=== PATIENT | male | born 1945 ===

== ENCOUNTER 2017-01-19 01:28 | Inpatient (IN) | payer OTHER ==
[~2017-01-19] VITALS: Ht 190.5 cm; Wt 113.4 kg
[~2017-01-19 01:28] MED LIST: ASPIRIN EC325 M2 PO; COREG25 M1 PO; LOSARTAN POTAS100 M1 PO; PRAVASTATIN SOD80 M2 PO; VENLAFAXINE HCL75 MG PO
--- NOTE | 2017-01-19 10:15 | Admission Core Measures ---
Admission Meds I reviewed the following Meds: Current Medications Sig/Donal Start time Last Medication Dose Stop Time Status Admin Acetaminophen 975 MG ONCE 01/19 NR (Tylenol) 01/19 2359 Cefazolin Sodium 2,000 MG ONCE 01/19 NR (Kefzol-Ancef Inj) 01/19 2359 Oxycodone HCl 10 MG ONCE 01/19 NR (Roxicodone) 01/19 2359 Acute Coronary Syndrome Inclusion Criteria ACS Diagnosis No Inpatient Core Measures LDL Reminder: If No, please order W/I first 24hr of stay Congestive Heart Failure Inclusion Criteria CHF Diagnosis No Cerebrovascular accident Inclusion Criteria CVA/TIA Diagnosis No Inpatient Core Measures Bedside Swallow Eval Reminder: If BSE failed, place ST order Antithrombotic Reminder: Order Antithrombotic Medication by end of day 2 Antithrombotic Reminder: Document Reason Antithrombotic Not ordered by end of day 2 AFIB/Flutter Reminder: If Present, add to problem list AFIB/Flutter Reminder: Order Anticoag Medication for pts with AFIB/Flutter Atherosclerosis Reminder: If Present, add to problem list LDL Reminder: If No, please order W/I first 24hr of stay PT Order Reminder: If No, please order Venous thromboembolism Inpatient Core Measures VTE Risk Factors: Age > 40, Surgery No [facility] VTE prophylaxis d/t No contraindications No VTE Pharm Prophylaxis d/t No contraindications Inclusion Criteria - Per Current guidelines, there needs to be overlap - treatment for the first 5 days of Warfarin therapy. - Parenteral Anticoagulation (IV or SC) needs to be - given along with Warfarin therapy. VTE Diagnosis No VTE Type NONE VTE Confirmed by (Test) NONE Problem List As ranked by this Provider includes Assessment & Plan 1. S/P total hip arthroplasty HOME MEDS Home Med List Aspirin (Ecotrin*) 325 MG TABLET.DR 1 TAB PO DAILY A FIB (Reported) Carvedilol (Coreg) 25 MG TABLET 2 TAB PO BID A FIB (Reported) Losartan Potassium 100 MG TABLET 1 TAB PO DAILY HTN (Reported) Pravastatin Sodium 80 MG TABLET 1 TAB PO DAILY CHOLESTEROL (Reported) Venlafaxine HCl 75 MG TABLET 1 TAB PO DAILY ANXIETY (Reported)
[2017-01-19] MEDS ORDERED: COLACE100 M1 PO (10:34)
[2017-01-19] MEDS ORDERED: ASPIRIN325 M2 PO (10:34)
[2017-01-19] MEDS ORDERED: MIRALAX17 G1 PO (10:34)
[2017-01-19] MEDS ORDERED: MS CONTIN15 M2 PO (10:34)
[2017-01-19] MEDS ORDERED: DILAUDID2 M1 PO (10:34)
--- NOTE | 2017-01-19 10:37 | Patient Discharge Instructions ---
Discharge Instructions General Discharge Information You were seen/treated for: Left hip degenerative joint disease You had these procedures: Left total hip arthroplasty Watch for these problems: Significantly increased pain, difficulty ambulating, or temperature over 101 Increased redness or drainage from incision No bath, but you may shower: Yes Other wound care: Daily dry dressing change Special Instructions: See preprinted information booklet Diet Continue normal diet: Yes Activity Activity Self Limited: Yes Other activity limits: Ambulate with walker as instructed by physical therapy No driving or operating heavy machinery until off all pain medications and okay with YOUR surgeon Acute Coronary Syndrome Inclusion Criteria At DC or during hospital stay patient has or had the following: ACS DIAGNOSIS No Discharge Core Measures Meds if any: Prescribed or Continued at Discharge Meds if any: NOT Prescribed or Continued at Discharge Congestive Heart Failure Inclusion Criteria At DC or during hospital stay patient has or had the following: CHF DIAGNOSIS No Discharge Core Measures Meds if any: Prescribed or Continued at Discharge Meds if any: NOT Prescribed or Continued at Discharge Cerebrovascular accident Inclusion Criteria At DC or during hospital stay patient has or had the following: CVA/TIA Diagnosis No Discharge Core Measures Meds if any: Prescribed or Continued at Discharge Meds if any: NOT Prescribed or Continued at Discharge Venous thromboembolism Inclusion Criteria VTE Diagnosis No VTE Type NONE VTE Confirmed by (Test) NONE Discharge Core Measures - Per Current guidelines, there needs to be overlap - treatment for the first 5 days of Warfarin therapy. - If discharged on Warfarin prior to 5 days of - overlap therapy, the patient will need to be - assessed for post discharge needs including - *Post discharge parental anticoagulation - *Warfarin and/or parental anticoagulation education - *Follow up date to check INR post discharge At least 5 days overlap therapy as Inpatient No Meds if any: Prescribed or Continued at Discharge Note: Overlap Therapy is Warfarin and Anticoagulant Meds if any: NOT Prescribed or Continued at Discharge
--- NOTE | 2017-01-19 10:40 | Surg Short-stay <48hrs Dis Sum ---
Visit Information Visit Dates Admission Date: 01/19/17 Discharge Date: 01/20/17 Surgical Short Stay DC Summary Admission Diagnosis: Left hip degenerative joint disease Final Diagnosis: Same Procedure(s): Left total hip arthroplasty Summary/Significant Findings: The patient was admitted on 01/19/2017. Later that day he was brought to the operating theater and underwent a left total hip arthroplasty. Postoperative the patient's pain is under adequate control and he ambulated well with physical therapy. The patient's labs and vital signs were stable and he was discharged with an uneventful hospital course. Condition at Discharge: Stable Discharge Disposition: home health services Discharge instructions provided to patient/family: Yes Post discharge follow-up plan: Call the office to be seen in 6 weeks or earlier if needed
--- NOTE | 2017-01-19 13:33 | RADIOLOGY REPORT ---
EXAMINATION: XR HIP, LEFT CLINICAL INFORMATION: Status post left hip prosthesis placement. COMPARISON: None TECHNIQUE: AP and crosstable lateral views of the left hip. FINDINGS: Intact left hip prosthesis is present. There are no acute fractures. IMPRESSION: Intact left hip prosthesis.
[2017-01-19 15:11] VITALS: BP 110/60
--- NOTE | 2017-01-19 15:40 | Operative Report ---
Operative/Inv Procedure Report Surgery Date: 01/19/17 Name of Procedure: Left total hip replacement Pre-Operative Diagnosis: Primary left hip DJD Post-Operative Diagnosis: Same Estimated Blood Loss: 250 Surgeon/Casting Technician: DEVON RANDOLPH,REGINALD Holder Anesthesia: general endotracheal tube Operative/Procedure Note Note: Description of Procedure: The patient was taken to the operating room and positively identified. After induction of general anesthesia and administration of appropriate pre-operative antibiotics, the patient was positioned supine on the operating room table and all bony prominences were well padded. After performing a surgical timeout, the left lower extremity was prepped and draped in the usual sterile fashion. A direct anterior approach was made to the left hip. The incision was carried sharply through superficial soft tissues to the level of the fascia. Meticulous hemostasis was maintained with Bovie electocautery. The fascia over the tensor fascia ruddy muscle was opened sharply and the interval between the TFL and the sartorius was entered bluntly taking care to stay lateral to the lateral femoral cutaneous nerve. Retractors were placed around the femoral neck and the pericapsular fat was identified. The ascending branches of the lateral femoral circumflex vessels were identified and carefully coagulated. The pericapsular fat and anterior capsule were then resected. A napkin ring osteotomy was performed and the femoral head was removed without difficulty. Attention was then turned to the acetabulum. After appropriate placement of retractors, the acetabulum was exposed. Soft tissue was cleaned from the acetabular margin and notch. Overhanging osteophytes were removed and the teardrop was exposed. The acetabulum was then sequentially reamed to accept a 62 mm Reese Tritanium hemispherical solid back shell. This was impacted into place in the appropriate position and fitted with a 36 mm Trident X3 zero degree polyethylene insert. Attention was then turned to the femur. After performing the appropriate ligament releases, the proximal femur was exposed. It was then sequentially broached to accept a size 7 Randolph accolade 2 stem. This was trialed for leg length and stability. The trial component was removed and the final component was impacted into place. The trunnion was carefully cleaned and fit with a 36 mm, -2.5 Biolox delta ceramic femoral head. The hip was reduced and put through a full range of motion and found to be stable. The articular space was then irrigated with sterile saline. The periarticular soft tissues were infilitrated with Marcaine. The fascial layer was closed with interrupted #1 vicryl suture and the skin was re-approximated with interrupted 2 -0 vicryl. The skin was closed with a running 3-0 V-Lock suture. Steri-strips and a sterile dressing were applied. The patient was awakened and taken to the recovery room in satisfactory condition.
--- NOTE | 2017-01-19 15:47 | PN- Orthopedic ---
Subjective Subjective: POC S/P LEFT STACEY SITTING UP IN CHAIR NO MJAOR COMPLAINTS HAS AMBULATED WITH PT ARTURO CP SOB, NO N+V Objective Vital Signs and I&Os Vital Signs Date Time Temp Pulse Resp B/P B/P Pulse O2 O2 Flow FiO2 Mean Ox Delivery Rate 01/19 1511 97.6 78 18 110/60 95 Nasal 2.0L Cannula Physical Exam: CV: RRR LUNGS: CLEAR ABD: +BS, SOFT EXT: DISTAL CMS INTACT BILAT DRSG DRY THIGH SOFT Assessment/Plan Assessment/Plan ORTHO STABLE PLAN CONT OOB WIH PT/STAIRS ASA BID FOR DVT PROPHYLAXIS HOME D/C PLANNING Core Measures/Miscellaneous Venous Thromboembolism VTE Risk Factors: Age > 40, Surgery VTE Contraindications: No Contraindications VTE Diagnosis: No VTE Type: NONE VTE Confirmed by (Test): NONE Beta Quentin Is Beta Quentin a Home Med? Yes Antibiotics Is Patient on Antibiotics? Yes If Yes: prophylaxis
[2017-01-19 16:57] VITALS: BP 102/70
[2017-01-19 19:20] VITALS: BP 118/68
[2017-01-19 20:49] VITALS: BP 124/76
[2017-01-20 01:01] VITALS: BP 148/76
[2017-01-20 05:16] VITALS: BP 122/70
[2017-01-20 07:53] LABS: ABSOLUTE BASOPHIL COUNT 0 /CUMM (0.0-0.2); ABSOLUTE EOSINOPHIL COUNT 0.1 /CUMM (0.0-0.7); ABSOLUTE GRANULOCYTE CT 10.5 /CUMM (1.4-6.5); ABSOLUTE LYMPH COUNT 1.3 /CUMM (1.2-3.4); BASOPHIL % 0.2 % (0.0-2.0); EOSINOPHIL % 0.4 % (0-5); GRANULOCYTE % 81.6 % (42.2-75.2); HEMATOCRIT 35.7 % (42-52); MEAN CORPUSCULAR HGB 29.6 PG (27.0-31.0); MEAN CORPUSCULAR HGB CONC 33.3 G/DL (33.0-37.0); MEAN PLATELET VOLUME 9.2 FL (7.4-10.4); PLATELET COUNT 153 /CUMM (130-400); RED BLOOD CELL CT 4.01 /CUMM (4.70-6.10); WHITE BLOOD CELL COUNT 12.9 /CUMM (4.8-10.8)
--- NOTE | 2017-01-20 09:27 | PN- Orthopedic ---
Subjective Subjective: Pt has no major complaints this morning. Pain is well controlled. He is tolerating po and voiding well. Progressing well with PT. Denies CONSTANTINO, dizziness, CP, SOB. Objective Vital Signs and I&Os Vital Signs Date Time Temp Pulse Resp B/P B/P Pulse O2 O2 Flow FiO2 Mean Ox Delivery Rate 01/20 0516 98.1 67 20 122/70 96 Nasal Cannula 01/20 0101 98.1 53 18 148/76 96 Nasal Cannula 01/20 0000 Nasal 3.0L Cannula 01/19 2057 67 124/76 01/19 2049 97.9 67 18 124/76 94 Nasal 3.0L Cannula 01/19 1920 97.6 67 20 118/68 95 01/19 1710 Nasal 3.0L Cannula 01/19 1657 98.0 75 20 102/70 97 Nasal Cannula 01/19 1511 97.6 78 18 110/60 95 Nasal 2.0L Cannula 01/19 1500 Nasal 2.0L Cannula Intake & Output 01/20 1600 01/20 0800 01/20 0000 01/19 1600 01/19 0800 01/19 0000 Intake Total 700 1200 Output Total 1500 700 Balance -800 500 Intake, IV 600 600 Intake, Oral 100 600 Number 0 Bowel Movements Output, Urine 1500 700 Patient 250 lb Weight Physical Exam: Gen: Pt is awake and alert. NAD. Sitting in chair. Cardiac: Regular Pulm: CTA bilaterally. Ext: L hip dressing is c/d/i. There is moderate thigh swelling, a little tight in the superior thigh, but inferior thigh is soft. No ecchymosis appreciated. LE sensation intact bilaterally. Strength of DF/PF 5/5 bilaterally. No calf tenderness. Results Last 48 Hours of Labs: Laboratory Tests 01/20 0655 Chemistry Sodium (137 - 145 mmol/L) 138 Potassium (3.5 - 5.1 mmol/L) 4.5 Chloride (98 - 107 mmol/L) 100 Carbon Dioxide (22 - 30 mmol/L) 29 Anion Gap (5 - 16) 10 BUN (9 - 20 mg/dL) 17 Creatinine (0.7 - 1.2 mg/dL) 0.9 Estimated GFR (>60 ml/min) > 60 BUN/Creatinine Ratio (7 - 25 %) 18.9 Hematology CBC w Diff NO MAN DIFF REQ WBC (4.8 - 10.8 /CUMM) 12.9 H RBC (4.70 - 6.10 /CUMM) 4.01 L Hgb (14.0 - 18.0 G/DL) 11.9 L Hct (42 - 52 %) 35.7 L MCV (80.0 - 94.0 FL) 89.0 MCH (27.0 - 31.0 PG) 29.6 RDW (11.5 - 14.5 %) 14.0 Plt Count (130 - 400 /CUMM) 153 MPV (7.4 - 10.4 FL) 9.2 Gran % (42.2 - 75.2 %) 81.6 H Lymphocytes % (20.5 - 51.1 %) 9.9 L Monocytes % (1.7 - 9.3 %) 7.9 Eosinophils % (0 - 5 %) 0.4 Basophils % (0.0 - 2.0 %) 0.2 Absolute Granulocytes (1.4 - 6.5 /CUMM) 10.5 H Absolute Lymphocytes (1.2 - 3.4 /CUMM) 1.3 Absolute Monocytes (0.10 - 0.60 /CUMM) 1.0 H Absolute Eosinophils (0.0 - 0.7 /CUMM) 0.1 Absolute Basophils (0.0 - 0.2 /CUMM) 0 PUBS MCHC (33.0 - 37.0 G/DL) 33.3 Assessment/Plan Assessment/Plan Pt is a 71 yo M with a hx of afib, htn, cholesterol, chronic pain, kidney stones who is now POD #1 s/p L anterior total hip replacement. Plan: -Pain control with po dilaudid. -Continue PT for mobilization. WBAT with rolling walker. -ASA 325 bid for DVT ppx. -Colace and miralax for bowel regimen. -Dressing change on POD #2. -Pt is cleared for discharge to home today with home PT and VNA services. Core Measures/Miscellaneous Venous Thromboembolism VTE Risk Factors: Age > 40, Surgery VTE Contraindications: No Contraindications VTE Diagnosis: No VTE Type: NONE VTE Confirmed by (Test): NONE Beta Quentin Is Beta Quentin a Home Med? Yes If Yes, Was This Ordered Today? Yes Antibiotics Is Patient on Antibiotics? No If Yes: infection
[2017-01-20 10:16] VITALS: BP 124/68
== END 2017-01-20 12:05 | disposition home health service (06) | DRG 470 ==
LOC: 2NA 01:28 → SDA 01:28 → ENRESERV 13:15 → CMPBEDREQ 14:12 → 2NA 14:48 → ENPENDDIS 01-20 10:25 → 2NA 01-20 10:27
PROVIDERS: Physician Assistant Surgical; ADMIT Orthopaedic Surgery
PROC: 0SRB04A Replacement of Left Hip Joint with Ceramic on Polyethylene Synthetic Substitute, Uncemented, Open Approach (ICD-10-PCS; principal; 2017-01-19)
DX: M16.12 Unilateral primary osteoarthritis, left hip (principal); I48.2 Chronic atrial fibrillation; I10 Essential (primary) hypertension; G31.84 Mild cognitive impairment of uncertain or unknown etiology; E78.5 Hyperlipidemia, unspecified; Z87.891 Personal history of nicotine dependence
CPT/HCPCS: 2NAP; 73502-LT; 82436; 88304; 97110-GO; 97116-GO; 97161-GP; C9399; J0131; J0690; J0735; J2270; J2405; J3490; J7042